=== PATIENT | female | born 1930 | race Caucasian/White ===

== ENCOUNTER 2019-01-24 10:29 | Inpatient (IN) | payer MEDICARE ==
[~2019-01-24] VITALS: Ht 154.9 cm; Wt 67.5 kg
[2019-01-24] MEDS ORDERED: DILTIAZEM 5 MG/ML, 5ML ONE (10:50)
[2019-01-24] MEDS ORDERED: SODIUM CHLORIDE 0.9% 1,000ML IVBOLUS ONE (11:00)
[2019-01-24] MEDS ORDERED: PLEASE ENTER ALLERGIES MC SCH (11:00)
[2019-01-24] MEDS ORDERED: DILTIAZEM 5 MG/ML, 5ML IVPush STA (11:00)
--- NOTE | 2019-01-24 11:15 | NUR ---
FIRST CONTACT WITH PT, SON (CARMITA) AT BEDSIDE. PT PRESENTS WITH C/O "I JUST FEEL DIZZY, ESPECIALLY WHEN I STAND UP". PT SON STATES, "DR. LEWIS RECENTLY MADE SOME MEDICATION CHANGES. IT SEEMS LIKE HER SYMPTOMS STARTED RIGHT AFTER THE CHANGES" SON AND PT BOTH STATE THAT THE SYMPTOMS STARTED YESTERDAY. PT AND SON ARE BOTH GOOD HISTORIANS AND HAVE BEEN MONITORING HER VITALS AT HOME. PT HAS HX OF AFIB AND TAKES ELIQUIS.
[2019-01-24 11:30] LABS: MEAN CORPUSCULAR HEMOGLOBIN 32.8 pg (27.0-34.8); MEAN CORPUSCULAR HGB CONC 33.5 g/dL (32.4-35.8); MEAN CORPUSCULAR VOLUME 97.7 fL (80-100); MEAN PLATELET VOLUME 8.2 fL (7.4-10.4); PLATELET COUNT 263 x10^3/uL (130-400); RED BLOOD COUNT 4.78 x10^6/uL (3.82-5.3); RED CELL DISTRIBUTION WIDTH 13.5 % (9.6-15.2)
[2019-01-24 11:33] LABS: INTERNATIONAL NORMALIZED RATIO 1.02 (0.93-1.1); PROTHROMBIN TIME 10.7 Seconds (9.6-11.5)
[2019-01-24 11:35] LABS: ALANINE AMINOTRANSFERASE 29 U/L (12-78); ALBUMIN 3.9 g/dL (3.4-5.0); ANION GAP 8 mmol/L (5-15); CALCIUM 9.4 mg/dL (8.5-10.1); CHLORIDE 111 mmol/L (98-107)
[2019-01-24 11:39] LABS: ALKALINE PHOSPHATASE 118 U/L (45-117); BILIRUBIN,TOTAL 0.7 mg/dL (0.2-1.0); TOTAL PROTEIN 6.9 g/dL (6.4-8.2); TROPONIN I < 0.015 ng/mL (0.000-0.045)
[2019-01-24] MEDS ORDERED: ZOLP-413 PO (11:40)
[2019-01-24] MEDS ORDERED: METO50TA82 PO (11:44)
[2019-01-24] MEDS ORDERED: METO25TA35 PO (11:44)
[2019-01-24] MEDS ORDERED: MOME17SP INH (11:51)
[2019-01-24] MEDS ORDERED: MONT10TA6 PO (11:51)
[2019-01-24] MEDS ORDERED: GABA300C10 PO (11:51)
[2019-01-24] MEDS ORDERED: LOSA100T14 PO (11:51)
[2019-01-24] MEDS ORDERED: DILT120C80 PO (11:56)
[2019-01-24] MEDS ORDERED: CHLO25TA PO (11:58)
[2019-01-24] MEDS ORDERED: APIX2.5T PO (11:58)
[2019-01-24] MEDS ORDERED: SODIUM CHLORIDE FLUSH 10ML SYR IVF ONE (12:00)
[2019-01-24] MEDS ORDERED: DILTIAZEM 60 MG TABLET PO ONE (12:00)
[2019-01-24] MEDS ORDERED: CHOL5000 PO (12:02)
[2019-01-24] MEDS ORDERED: CALC-680 PO (12:02)
[2019-01-24] MEDS ORDERED: MAGN100T6 PO (12:02)
[2019-01-24] MEDS ORDERED: VIT1CAPS42 PO (12:02)
[2019-01-24] MEDS ORDERED: PRAV10TA2 PO (12:08)
[2019-01-24 12:11] LABS: BASOPHILS # (AUTO) 0.05 x10^3/uL (0-0.1); BASOPHILS % (AUTO) 1 % (0-1); EOSINOPHILS # (AUTO) 0.08 x10^3/uL (0-0.4); EOSINOPHILS % (AUTO) 1 % (1-7); LYMPHOCYTES # (AUTO) 2.71 x10^3/uL (1-3.4); LYMPHOCYTES % (AUTO) 27 % (22-44); MD SCAN; MONOCYTES # (AUTO) 0.82 x10^3/uL (0.2-0.8); MONOCYTES % (AUTO) 8 % (2-9); NEUTROPHILS # (AUTO) 6.58 x10^3/uL (1.8-6.8); NEUTROPHILS % (AUTO) 64 % (42-75)
[2019-01-24] MEDS ORDERED: ALBU8.5H8 INH (12:41)
[2019-01-24] MEDS ORDERED: BECL10.62 INH (12:43)
--- NOTE | 2019-01-24 13:07 | NUR ---
ADMITTING MD AT BEDSIDE. CONT AFIB PER MONITOR RATE LOW 100'S.
[2019-01-24] MEDS ORDERED: hydrALAzine 20 MG/ML, 1ML IVPush PRN (13:30)
[2019-01-24] MEDS ORDERED: ACETAMINOPHEN 325 MG TABLET PO PRN (13:30)
[2019-01-24] MEDS ORDERED: ONDANSETRON 2MG/ML, 2ML IVPush PRN (13:30)
[2019-01-24] MEDS ORDERED: LABETALOL 5MG/ML, 20ML IVPush PRN (13:30)
[2019-01-24] MEDS ORDERED: ONDANSETRON ODT 4 MG PO PRN (13:30)
[2019-01-24] MEDS ORDERED: DILTIAZEM 60 MG TABLET ONE (14:01)
[2019-01-24 14:05] LABS: TROPONIN I < 0.015 ng/mL (0.000-0.045)
--- NOTE | 2019-01-24 14:14 | NUR ---
REPORT TO LYNN MALCOLM, POC DISCUSSED.
[2019-01-24 14:55] VITALS: BP 154/105
[2019-01-24] MEDS: SODIUM CHLORIDE 0.9% 1,000 ML IV SCH (15:56)
[2019-01-24 19:16] VITALS: BP_SYST 137; BP_SYST 190; BP_SYST 81; BP_DIAS 55; BP_DIAS 88
[2019-01-24 19:40] LABS: TROPONIN I < 0.015 ng/mL (0.000-0.045)
[2019-01-24] MEDS: ZOLPIDEM 5MG TABLET PO SCH (20:27)
[2019-01-24] MEDS: APIXABAN 2.5 MG TABLET PO SCH (20:27)
[2019-01-24] MEDS: METOPROLOL TARTRATE 100 MG TABLET PO SCH (20:27)
[2019-01-24] MEDS: ALBUTEROL SULFATE 2.5 MG/3 ML NPPB SCH (21:00)
[2019-01-24] MEDS ORDERED: GABAPENTIN 100 MG CAPSULE PO SCH (21:00)
[2019-01-25] VITALS (9 sets, daily range): BP systolic 102–151; BP diastolic 69–93
[2019-01-25 04:33] LABS: BASOPHILS # (AUTO) 0.05 x10^3/uL (0-0.1); BASOPHILS % (AUTO) 1 % (0-1); EOSINOPHILS # (AUTO) 0.26 x10^3/uL (0-0.4); EOSINOPHILS % (AUTO) 3 % (1-7); LYMPHOCYTES # (AUTO) 3.48 x10^3/uL (1-3.4); LYMPHOCYTES % (AUTO) 44 % (22-44); MD NO; MEAN CORPUSCULAR HEMOGLOBIN 32.5 pg (27.0-34.8); MEAN CORPUSCULAR HGB CONC 33.1 g/dL (32.4-35.8); MEAN PLATELET VOLUME 8.2 fL (7.4-10.4); MONOCYTES # (AUTO) 0.62 x10^3/uL (0.2-0.8); MONOCYTES % (AUTO) 8 % (2-9); NEUTROPHILS # (AUTO) 3.58 x10^3/uL (1.8-6.8); NEUTROPHILS % (AUTO) 45 % (42-75); PLATELET COUNT 223 x10^3/uL (130-400); RED BLOOD COUNT 4.24 x10^6/uL (3.82-5.3); RED CELL DISTRIBUTION WIDTH 13.6 % (9.6-15.2)
[2019-01-25 04:38] LABS: CALCIUM 8.6 mg/dL (8.5-10.1); CHLORIDE 113 mmol/L (98-107)
[2019-01-25 04:45] LABS: ALANINE AMINOTRANSFERASE 22 U/L (12-78); ALBUMIN 3.1 g/dL (3.4-5.0); ALKALINE PHOSPHATASE 89 U/L (45-117); ANION GAP 8 mmol/L (5-15); BILIRUBIN,TOTAL 0.8 mg/dL (0.2-1.0); CREATININE 1.15 mg/dL (0.55-1.02); TOTAL PROTEIN 5.8 g/dL (6.4-8.2)
[2019-01-25] MEDS ORDERED: DILTIAZEM 60 MG TABLET PO SCH (09:00)
[2019-01-25] MEDS: ALBUTEROL SULFATE 2.5 MG/3 ML NPPB SCH ×2 (09:00→18:59)
[2019-01-25] MEDS: MONTELUKAST 10 MG TABLET PO SCH (09:03)
[2019-01-25] MEDS: METOPROLOL TARTRATE 100 MG TABLET PO SCH ×2 (09:03→21:14)
[2019-01-25] MEDS: MIDODRINE 5 MG TABLET PO SCH ×3 (09:04→21:13)
[2019-01-25] MEDS: APIXABAN 2.5 MG TABLET PO SCH ×2 (09:04→21:13)
[2019-01-25] MEDS: CALCIUM CITRATE 950 MG TABLET PO SCH (09:04)
[2019-01-25] MEDS: CHOLECALCIFEROL 1,000 UNIT TABLET PO SCH (09:04)
[2019-01-25] MEDS: SODIUM CHLORIDE 0.9% 1,000 ML IV SCH (09:17)
[2019-01-25] MEDS: LOPERAMIDE 1 MG/5 ML, 10ML UDC PO PRN (15:34)
[2019-01-25] MEDS: ZOLPIDEM 5MG TABLET PO SCH (21:13)
[2019-01-26] VITALS (8 sets, daily range): BP systolic 125–184; BP diastolic 74–87
[2019-01-26] MEDS: METOPROLOL TARTRATE 100 MG TABLET PO SCH ×2 (08:27→20:26)
[2019-01-26 08:31] LABS: ALANINE AMINOTRANSFERASE 48 U/L (12-78); ALBUMIN 3.3 g/dL (3.4-5.0); ANION GAP 7 mmol/L (5-15); CALCIUM 8.6 mg/dL (8.5-10.1); CHLORIDE 113 mmol/L (98-107); CREATININE 1.01 mg/dL (0.55-1.02)
[2019-01-26 08:33] LABS: ALKALINE PHOSPHATASE 95 U/L (45-117); TOTAL PROTEIN 6.1 g/dL (6.4-8.2)
[2019-01-26] MEDS: MONTELUKAST 10 MG TABLET PO SCH (08:35)
[2019-01-26] MEDS: CHOLECALCIFEROL 1,000 UNIT TABLET PO SCH (08:35)
[2019-01-26] MEDS: CALCIUM CITRATE 950 MG TABLET PO SCH (08:36)
[2019-01-26] MEDS: APIXABAN 2.5 MG TABLET PO SCH ×2 (08:36→20:26)
[2019-01-26] MEDS: MIDODRINE 5 MG TABLET PO SCH ×3 (08:36→20:25)
[2019-01-26] MEDS: SODIUM CHLORIDE 0.9% 1,000 ML IV SCH (08:48)
[2019-01-26] MEDS ORDERED: DILTIAZEM 120 MG TABLET PO SCH (09:00)
[2019-01-26] MEDS: ALBUTEROL SULFATE 2.5 MG/3 ML NPPB SCH (10:08)
[2019-01-26] MEDS ORDERED: ALBUTEROL SULFATE 2.5 MG/3 ML NPPB PRN (10:30)
[2019-01-26] MEDS: LOPERAMIDE 1 MG/5 ML, 10ML UDC PO PRN (10:46)
[2019-01-26] MEDS: ZOLPIDEM 5MG TABLET PO SCH (20:26)
[2019-01-27] VITALS (10 sets, daily range): BP systolic 110–159; BP diastolic 69–94
[2019-01-27] MEDS: SODIUM CHLORIDE 0.9% 1,000 ML IV SCH (04:19)
[2019-01-27] MEDS: MIDODRINE 5 MG TABLET PO SCH ×3 (09:13→19:55)
[2019-01-27] MEDS: APIXABAN 2.5 MG TABLET PO SCH ×2 (09:14→19:55)
[2019-01-27] MEDS: CHOLECALCIFEROL 1,000 UNIT TABLET PO SCH (09:14)
[2019-01-27] MEDS: METOPROLOL TARTRATE 100 MG TABLET PO SCH ×2 (09:14→19:55)
[2019-01-27] MEDS: MONTELUKAST 10 MG TABLET PO SCH (09:14)
[2019-01-27] MEDS: CALCIUM CITRATE 950 MG TABLET PO SCH (09:14)
[2019-01-27] MEDS: DILTIAZEM 90 MG CAP.ER.12H PO SCH ×2 (10:23→19:56)
[2019-01-27] MEDS: LOPERAMIDE 1 MG/5 ML, 10ML UDC PO PRN (10:23)
[2019-01-27] MEDS: ZOLPIDEM 5MG TABLET PO SCH (19:56)
[2019-01-28 00:55] VITALS: BP 149/67
[2019-01-28 06:10] LABS: ALANINE AMINOTRANSFERASE 58 U/L (12-78); ALBUMIN 3.2 g/dL (3.4-5.0); ANION GAP 7 mmol/L (5-15); CALCIUM 8.7 mg/dL (8.5-10.1); CHLORIDE 114 mmol/L (98-107)
[2019-01-28 06:13] LABS: ALKALINE PHOSPHATASE 87 U/L (45-117); BILIRUBIN,TOTAL 0.7 mg/dL (0.2-1.0); CREATININE 0.97 mg/dL (0.55-1.02); TOTAL PROTEIN 5.8 g/dL (6.4-8.2)
[2019-01-28 06:18] VITALS: BP 155/80
[2019-01-28] MEDS ORDERED: POTASSIUM CHLORIDE 20 MEQ TAB.ER.PRT PO SCH (08:00)
[2019-01-28] MEDS: METOPROLOL TARTRATE 100 MG TABLET PO SCH (08:01)
[2019-01-28] MEDS: CHOLECALCIFEROL 1,000 UNIT TABLET PO SCH (08:01)
[2019-01-28] MEDS: MONTELUKAST 10 MG TABLET PO SCH (08:01)
[2019-01-28] MEDS: DILTIAZEM 90 MG CAP.ER.12H PO SCH (08:01)
[2019-01-28] MEDS: CALCIUM CITRATE 950 MG TABLET PO SCH (08:01)
[2019-01-28] MEDS: MIDODRINE 5 MG TABLET PO SCH (08:01)
[2019-01-28] MEDS: APIXABAN 2.5 MG TABLET PO SCH (08:01)
[2019-01-28] MEDS ORDERED: POTA20TA6 PO (12:13)
[2019-01-28] MEDS ORDERED: DILT90CA PO (12:13)
[2019-01-28] MEDS ORDERED: METO-99 PO (12:13)
[2019-01-28] MEDS ORDERED: MIDO5TAB9 PO (12:13)
== END 2019-01-28 13:45 | disposition home health service (06) | DRG 73 ==
LOC: ED 12:04 → EDIP 12:05 → ED 12:56 → 4WST 14:33 → DCLOUNGE 01-28 13:45
PROVIDERS: ADMIT Internal Medicine; ATTEND Internal Medicine
DX: G90.9 Disorder of the autonomic nervous system, unspecified (principal); N17.0 Acute kidney failure with tubular necrosis; D68.69 Other thrombophilia; K50.90 Crohn's disease, unspecified, without complications; I48.0 Paroxysmal atrial fibrillation; I12.9 Hypertensive chronic kidney disease with stage 1 through stage 4 chronic kidney disease, or unspecified chronic kidney disease; E55.9 Vitamin D deficiency, unspecified; I25.10 Atherosclerotic heart disease of native coronary artery without angina pectoris; I35.8 Other nonrheumatic aortic valve disorders; N18.3 Chronic kidney disease, stage 3 (moderate); Z96.659 Presence of unspecified artificial knee joint; Z66 Do not resuscitate; Z79.01 Long term (current) use of anticoagulants; Z79.899 Other long term (current) drug therapy; Z82.49 Family history of ischemic heart disease and other diseases of the circulatory system
CPT/HCPCS: 36415; 71045; 80053; 82533; 83880; 84443; 84484; 85025; 85610; 85730; 93005; 93306; 93880; 94640; 96361; 96374; G0378; J7613; J7030

== ENCOUNTER 2019-02-27 07:41 | Observation (INO) | payer MEDICARE ==
[2019-02-26 10:56] LABS: BASOPHILS # (AUTO) 0.05 x10^3/uL (0-0.1); BASOPHILS % (AUTO) 1 % (0-1); EOSINOPHILS # (AUTO) 0.14 x10^3/uL (0-0.4); EOSINOPHILS % (AUTO) 2 % (1-7); LYMPHOCYTES # (AUTO) 2.06 x10^3/uL (1-3.4); LYMPHOCYTES % (AUTO) 34 % (22-44); MD NO; MEAN CORPUSCULAR HEMOGLOBIN 32.1 pg (27.0-34.8); MEAN CORPUSCULAR HGB CONC 33.5 g/dL (32.4-35.8); MEAN CORPUSCULAR VOLUME 95.7 fL (80-100); MEAN PLATELET VOLUME 7.9 fL (7.4-10.4); MONOCYTES % (AUTO) 8 % (2-9); NEUTROPHILS % (AUTO) 55 % (42-75); PLATELET COUNT 217 x10^3/uL (130-400); RED BLOOD COUNT 4.42 x10^6/uL (3.82-5.3); RED CELL DISTRIBUTION WIDTH 12.8 % (9.6-15.2)
[2019-02-26 11:05] LABS: ANION GAP 7 mmol/L (5-15); CHLORIDE 110 mmol/L (98-107); CREATININE 1.24 mg/dL (0.55-1.02)
[~2019-02-27] VITALS: Ht 154.9 cm; Wt 66.7 kg
[~2019-02-27 07:41] MED LIST: ALBU8.5H8 INH; APIX2.5T PO; AZEL205.2 NAS; BECL10.62 INH; CALC-680 PO; CHLO25TA PO; CHOL5000 PO; CYAN50008 PO; DILT120C80 PO; DILT90CA PO; DILT90TA PO; GABA300C10 PO; LOSA100T14 PO; MAGN100T6 PO; METO-99 PO; METO25TA35 PO; METO50TA82 PO; MIDO10TA PO; MIDO5TAB9 PO; MOME17SP INH; MONT10TA6 PO; POTA20TA6 PO; PRAV10TA2 PO; VIT1CAPS42 PO; ZOLP-413 PO
[2019-02-27] MEDS: SODIUM CHLORIDE 0.9% 1,000 ML IV SCH ×2 (07:46→15:33)
[2019-02-27 08:27] VITALS: BP 211/91
[2019-02-27] MEDS ORDERED: LIDOCAINE 2%, 20ML ONE (09:24)
[2019-02-27] MEDS ORDERED: FENTANYL PF 100 MCG/2ML ONE (09:24)
[2019-02-27] MEDS ORDERED: CEFAZOLIN 1,000 MG ONE (09:24)
[2019-02-27] MEDS ORDERED: MIDAZOLAM 1 MG/ML, 5ML ONE (09:24)
[2019-02-27] MEDS ORDERED: CEFAZOLIN PMX 1GM/50ML 50 ML ONE (09:24)
[2019-02-27] MEDS ORDERED: hydrALAzine 20 MG/ML, 1ML ONE (09:40)
[2019-02-27] MEDS ORDERED: ZOLPIDEM 5MG TABLET PO PRN (10:30)
[2019-02-27] MEDS ORDERED: HOLD MEDICATION MC PRN (10:30)
[2019-02-27] MEDS ORDERED: ONDANSETRON 2MG/ML, 2ML IV PRN (10:30)
[2019-02-27 10:56] VITALS: BP 189/78
[2019-02-27 16:36] VITALS: BP 155/67
[2019-02-27] MEDS: CEFAZOLIN PMX 1GM/50ML 50 ML IVPB SCH ×2 (16:48→23:35)
[2019-02-27 20:00] VITALS: BP 197/69
[2019-02-27] MEDS: DILTIAZEM 90 MG TABLET PO SCH (20:27)
[2019-02-27] MEDS: METOPROLOL TARTRATE 100 MG TABLET PO SCH (20:27)
[2019-02-27] MEDS: AZELASTINE HCL NAS SCH (20:28)
[2019-02-27] MEDS: MOMETASONE FUROATE INH SCH (20:28)
[2019-02-27] MEDS: ALBUTEROL SULFATE INH SCH (20:28)
[2019-02-27] MEDS: BECLOMETHASONE DIPROPIONATE INH SCH (20:28)
[2019-02-27] MEDS: SODIUM CHLORIDE FLUSH 10ML SYR IVF SCH (20:29)
[2019-02-27 20:30] VITALS: BP 186/77
[2019-02-27] MEDS: HYDROcodone/APAP 5/325 TABLET PO PRN (20:42)
[2019-02-27] MEDS ORDERED: PRAVASTATIN 20 MG TABLET PO SCH (21:00)
[2019-02-27] MEDS ORDERED: GABAPENTIN 100 MG CAPSULE PO SCH (21:00)
[2019-02-27] MEDS ORDERED: AMLODIPINE 5 MG TABLET PO ONE (21:30)
[2019-02-27 22:20] VITALS: BP 125/70
[2019-02-28 00:52] VITALS: BP 116/68
[2019-02-28 07:15] VITALS: BP 170/76
[2019-02-28] MEDS: METOPROLOL TARTRATE 100 MG TABLET PO SCH (07:44)
[2019-02-28] MEDS: DILTIAZEM 90 MG TABLET PO SCH (07:44)
[2019-02-28] MEDS: CEFAZOLIN PMX 1GM/50ML 50 ML IVPB SCH (07:45)
[2019-02-28] MEDS: AZELASTINE HCL NAS SCH (07:47)
[2019-02-28] MEDS: ALBUTEROL SULFATE INH SCH (07:47)
[2019-02-28] MEDS: MOMETASONE FUROATE INH SCH (07:47)
[2019-02-28] MEDS: BECLOMETHASONE DIPROPIONATE INH SCH (07:47)
[2019-02-28] MEDS: SODIUM CHLORIDE FLUSH 10ML SYR IVF SCH (07:48)
[2019-02-28] MEDS ORDERED: ACET325T14 PO (08:59)
[2019-02-28] MEDS ORDERED: MONTELUKAST 10 MG TABLET PO SCH (09:00)
[2019-02-28] MEDS ORDERED: MULTIVITAMINS/MINERALS TABLET PO SCH (09:00)
[2019-02-28] MEDS ORDERED: LOSARTAN 50MG TABLET PO SCH (09:00)
[2019-02-28] MEDS ORDERED: CHOLECALCIFEROL 5,000u TAB PO SCH (09:00)
[2019-02-28] MEDS ORDERED: CYANOCOBALAMIN 1,000 MCG TABLET PO SCH (09:00)
[2019-02-28] MEDS ORDERED: MAGNESIUM CITRATE 200 MG PO SCH (09:00)
[2019-02-28] MEDS ORDERED: CALCIUM CITRATE 950 MG TABLET PO SCH (09:00)
[2019-02-28] MEDS: HYDROcodone/APAP 5/325 TABLET PO PRN (10:13)
== END 2019-02-28 13:18 | disposition home or self-care (01) ==
LOC: CACL 07:41 → ORIP 10:19 → 5SO 10:44
PROVIDERS: ADMIT Internal Medicine Cardiovascular Disease; ATTEND Internal Medicine Cardiovascular Disease
DX: I49.5 Sick sinus syndrome (principal); R55 Syncope and collapse; Z88.6 Allergy status to analgesic agent
CPT/HCPCS: 33208; 36415; 71045; 71046; 80048; 85025; 93005; 96365; 96366; 99156; 99157; C1779; C1785; C1892; G0378; J0690; J2250; J3010; J3490; J0360